=== PATIENT | female | born 1970 | race Two or more races ===

== ENCOUNTER 2019-09-23 10:53 | Outpatient (CLI) | payer MEDICAID ==
[~2019-09-23] VITALS: Ht 162.6 cm; Wt 66.7 kg
[2019-09-23 13:02] VITALS: BP 99/57
[2019-09-23] MEDS ORDERED: SYNTHROID100 MCG ORAL (13:02)
--- NOTE | 2019-09-25 03:32 | Consultation ---
DATE OF CONSULTATION: 09/23/2019 CHIEF COMPLAINT: Referral for screening colonoscopy. HISTORY OF PRESENT ILLNESS: This is a 48-year-old female with past medical history of rectal fistulas, requiring surgery in the past, never had a colonoscopy, was referred to us for screening colonoscopy. PAST MEDICAL HISTORY: 1. Hypothyroidism. 2. Anal fissures. PAST SURGICAL HISTORY: x2 and fistula surgery. MEDICATION: Levothyroxine. FAMILY HISTORY: Aunt had colon cancer. SOCIAL HISTORY: The patient denies any tobacco, alcohol, or drug use. ALLERGIES: No known drug allergies. REVIEW OF SYSTEMS: A 12-point review of systems was performed and positive for only bloating. PHYSICAL EXAMINATION: VITAL SIGNS: Temperature 98.2, pulse 68, respirations 20, and blood pressure 99/57. HEENT: Normocephalic and atraumatic. Sclerae . NECK: Supple. No evidence of obvious lymphadenopathy. CARDIOVASCULAR: Regular rate and rhythm. Plus S1 and S2. LUNGS: Decreased breath sounds bilaterally based on supine examination. ABDOMEN: Soft and nontender. No rebound. No guarding. No peritoneal sign. EXTREMITIES: No cyanosis. No clubbing. No edema ASSESSMENT AND PLAN: This is a 48-year-old female with past medical history of fistulas in the past, never had a colonoscopy, was referred for screening colonoscopy. The patient was given the instruction for colonoscopy. The prep was given to her. We are going to schedule her, pending authorization. He Rodrigues M.D. DR: Richie JOB#: [id number] CC:
== END 2019-09-23 12:53 | disposition home or self-care (01) ==
LOC: PAN 10:53
DX: K60.4 Rectal fistula (principal); E03.9 Hypothyroidism, unspecified; Z79.899 Other long term (current) drug therapy; Z80.0 Family history of malignant neoplasm of digestive organs